=== PATIENT | male | born 1950 | race Caucasian/White ===

== ENCOUNTER 2016-12-25 17:12 | Emergency (ER) | payer OTHER ==
[~2016-12-25] VITALS: Ht 162.6 cm; Wt 77.3 kg
[~2016-12-25 17:12] MED LIST: AMLO-511 PO; CHL25 PO; IBUP-2071 PO; LISI-662 PO; SIMV-261 PO
[2016-12-25 18:21] LABS: BASOPHILS # (AUTO) 0.04 K/uL (0.00-0.20); BASOPHILS % (AUTO) 0.4 % (0.0-2.0); EOSINOPHILS # (AUTO) 0.15 K/uL (0.00-0.70); EOSINOPHILS % (AUTO) 1.64 % (1.0-6.0); HEMATOCRIT 44.9 % (41-53); HEMOGLOBIN 14.8 g/dL (13.5-17.5); LYMPHOCYTES # (AUTO) 2.7 K/uL (1.0-4.8); LYMPHOCYTES % (AUTO) 28.3 % (22.0-44.0); MEAN CORPUSCULAR HEMOGLOBIN 27.7 pg (26.0-34.0); MEAN CORPUSCULAR HGB CONC 32.9 G/dL (31.0-37.0); MEAN CORPUSCULAR VOLUME 84 fL (80-100); MONOCYTES # (AUTO) 0.6 K/uL (0.1-1.0); MONOCYTES % (AUTO) 6.1 % (2.0-9.0); NEUTROPHILS % (AUTO) 63.6 % (40.0-70.0); PLATELET COUNT (AUTO) 257 K/uL (150-450); RED BLOOD CELL COUNT(AUTO) 5.34 MIL/uL (4.50-5.90); RED CELL DISTRIBUTION WIDTH 14.5 % (11.5-14.5); WHITE BLOOD COUNT (AUTO) 9.5 K/uL (4.5-11.0)
[2016-12-25 18:27] LABS: ANION GAP 7 mmol/L (8-16); CALCIUM, TOTAL 8.7 mg/dL (8.8-10.5); CARBON DIOXIDE 28 mmol/L (22-29); CHLORIDE 100 mmol/L (98-107); GLOMERULAR FILTR. RATE CALC > 60 mL/min (>60); POTASSIUM 3.4 mmol/L (3.5-5.1); SODIUM SERUM 135 mmol/L (136-145); UREA NITROGEN, BLOOD 18 mg/dL (7-18)
[2016-12-25 18:32] LABS: PROTHROMBIN TIME 10.1 SEC (9.4-11.6)
[2016-12-25 18:34] LABS: ALANINE AMINOTRANSFERASE 26 U/L (12-78); ALBUMIN 3.9 g/dL (3.4-5.0); ASPARTATE AMINOTRANSFERASE 19 U/L (15-37); BILIRUBIN,TOTAL 0.2 mg/dL (0.1-1.0); CREATINE KINASE, TOTAL 68 U/L (39-308); TOTAL PROTEIN, SERUM 7.5 g/dL (6.4-8.2)
[2016-12-25] MEDS ORDERED: SODIUM CHLORIDE 0.9% 1,000 ML IV ONE (18:45)
[2016-12-25] MEDS ORDERED: MECLIZINE HCL 25 MG TABLET PO ONE (18:45)
[2016-12-25 19:03] LABS: B-TYPE NATRIURETIC PEPTIDE 6 pg/mL (0-100)
[2016-12-25 19:25] LABS: APPEARANCE,URINE CLEAR (CLEAR); GLUCOSE, URINE (UA) NEGATIVE (NEGATIVE); KETONES,URINE NEGATIVE (NEGATIVE); LEUKOCYTE ESTERASE ,URINE NEGATIVE (NEGATIVE); OCCULT BLOOD,URINE NEGATIVE (NEGATIVE); PH,URINE 6.5 (5.0-8.0); PROTEIN,URINE NEGATIVE (NEGATIVE)
[2016-12-25 19:26] LABS: ADD UA MICROSCOPIC NO
[2016-12-25 20:29] VITALS: BP 119/68
== END 2016-12-25 20:37 | disposition home or self-care (01) ==
LOC: EMS 17:14
DX: R42 Dizziness and giddiness (principal); E78.00 Pure hypercholesterolemia, unspecified; I10 Essential (primary) hypertension
CPT/HCPCS: 36415; 71010; 80053; 81003; 82550; 83880; 84484; 85025; 85610; 85730; 93005; 96360; 96361; 99285; J7030

== ENCOUNTER 2021-09-25 12:02 | Emergency (ER) | payer OTHER ==
[~2021-09-25] VITALS: Ht 162.6 cm; Wt 65.9 kg
[~2021-09-25 12:02] MED LIST changes: +AMLO-257 PO; -AMLO-511 PO; -LISI-662 PO; +LISI-894 PO
[2021-09-25] MEDS ORDERED: RABIES VACCINE (PCEC)/PF 2.5 UNITS/ML SYRINGE IM. ONE (15:00)
[2021-09-25] MEDS ORDERED: PERTUSS(ACELL),DIPH,TET VAC/PF 0.5 ML SYRINGE IM. ONE (15:00)
[2021-09-25] MEDS ORDERED: AMOX TR/POT CLAV 875 MG/125 MG TABLET PO ONE (15:00)
[2021-09-25] MEDS ORDERED: RABIES IMMUNE GLOBULIN/PF 300 UNITS/ML 5 ML VIAL IM. ONE (15:00)
[2021-09-25] MEDS ORDERED: AMOX1TAB16 PO (15:49)
[2021-09-25 16:43] VITALS: BP 102/61
[2021-09-29] MEDS ORDERED: ATOR40TA71 PO (12:06)
== END 2021-09-25 16:46 | disposition home or self-care (01) ==
LOC: EMS 12:02
DX: S61.451A Open bite of right hand, initial encounter (principal); I10 Essential (primary) hypertension; E78.00 Pure hypercholesterolemia, unspecified; Z79.899 Other long term (current) drug therapy; W54.0XXA Bitten by dog, initial encounter; Y93.89 Activity, other specified; Y92.89 Other specified places as the place of occurrence of the external cause; Y99.8 Other external cause status
CPT/HCPCS: 90375; 90471; 90472; 90675; 90715; 96372; 99284

== ENCOUNTER 2021-09-28 07:49 | Emergency (ER) | payer OTHER ==
[~2021-09-28] VITALS: Ht 157.5 cm; Wt 59.1 kg
[~2021-09-28 07:49] MED LIST changes: +AMOX1TAB16 PO
[2021-09-28 08:04] VITALS: BP 115/58
[2021-09-28] MEDS ORDERED: RABIES VACCINE (PCEC)/PF 2.5 UNITS/ML SYRINGE IM. ONE (08:15)
[2021-09-29] MEDS ORDERED: ATOR40TA71 PO (12:06)
== END 2021-09-28 09:25 | disposition home or self-care (01) ==
LOC: EMS 07:50
DX: S61.451D Open bite of right hand, subsequent encounter (principal); E78.00 Pure hypercholesterolemia, unspecified; I10 Essential (primary) hypertension; W54.0XXD Bitten by dog, subsequent encounter
CPT/HCPCS: 90471; 90675; 99281; 99283